=== PATIENT | female | born 1985 | race Caucasian/White ===

== ENCOUNTER → 2023-11-19 07:40 | Outpatient (REF) | payer BC, SELFPAY | LOC: EMG 07:40 | PROVIDERS: ATTENDING PHYSICIAN Specialist; FAMILY PHYSICIAN Family Medicine | DX: R20.0 Anesthesia of skin (principal) | CPT/HCPCS: 95886; 95911 ==

== ENCOUNTER → 2024-01-19 19:49 | Outpatient (REF) | payer OTHER, SELFPAY | LOC: MRI 19:49 | PROVIDERS: ATTENDING PHYSICIAN Psychiatry & Neurology Neurology; FAMILY PHYSICIAN Family Medicine | DX: S14.3XXA Injury of brachial plexus, initial encounter (principal) | CPT/HCPCS: 71552; A9575 ==